=== PATIENT | male | born 1955 | race Caucasian/White ===

== ENCOUNTER → 2017-11-10 | Outpatient (CLI) | payer OTHER ==
[~2017-11-10] MED LIST: OXYC-272 PO
--- NOTE | 2017-11-10 12:35 | Diagnostic Imaging Report ---
INDICATION: Low back pain. EXAMINATION: Lumbar spine. FINDINGS: AP and lateral views of the lumbar spine show grade 1 spondylolisthesis at L4-L5. Alignment is otherwise normal. There are no compression fractures. There are large osteophytes forming anteriorly throughout the lumbar spine with bridging osteophytes at L5-S1. IMPRESSION: Pkeajefj-is-wulgju spondylosis deformans of the lumbar spine. There is grade 1 spondylolisthesis at L4-L5 with some associated facet arthropathy at that level. Dictated by: Dictated on workstation # [id number]
== END ==
LOC: RAD 12:02
PROVIDERS: ATTEND Nurse Practitioner Family
DX: M47.816 Spondylosis without myelopathy or radiculopathy, lumbar region (principal); M43.16 Spondylolisthesis, lumbar region; M46.86 Other specified inflammatory spondylopathies, lumbar region
CPT/HCPCS: 72100

== ENCOUNTER → 2019-04-26 | Outpatient (CLI) | payer MEDICARE ==
--- NOTE | 2019-04-26 16:45 | Diagnostic Imaging Report ---
INDICATION: Left femoral pain. COMPARISON: None. FINDINGS: Two radiographic views of the left hip were obtained. There are expected postsurgical changes of previous left total hip arthroplasty. There is appropriate anatomic alignment of the femoral component in relation to the acetabular component. Acetabular component appears well seated. The stem of the femoral component is located centrally in the medullary cavity. There is no periprosthetic fracture. No acute fracture or dislocation is identified. No unexpected radiopaque foreign bodies identified. IMPRESSION: Expected postsurgical changes of previous left total hip arthroplasty. No evidence of hardware fracture or failure. Dictated by: Dictated on workstation # [id number]
--- NOTE | 2019-04-26 16:46 | Diagnostic Imaging Report ---
INDICATION: Left femoral pain. COMPARISON: None. FINDINGS: Four radiographic views of the left femur were obtained and show no evidence of acute fracture or dislocation. Postsurgical changes of previous total left hip replacement are identified. Femoral and acetabular components appear well seated and well aligned in respect to one another. There is no evidence of periprosthetic fracture or loosening. No unexpected radiopaque foreign bodies are seen. Left knee joint is also intact. Note is made of mild osteoarthritic changes. IMPRESSION: 1. No evidence of acute fracture or dislocation of the left femur. 2. Expected postsurgical changes of previous left hip replacement. Dictated by: Dictated on workstation # [id number]
== END ==
LOC: RAD 15:39
PROVIDERS: ATTEND Family Medicine
DX: M79.652 Pain in left thigh (principal); Z96.642 Presence of left artificial hip joint
CPT/HCPCS: 73502; 73552

== ENCOUNTER → 2022-09-29 | Outpatient (CLI) | payer MEDICARE ==
--- NOTE | 2022-09-29 09:13 | Diagnostic Imaging Report ---
INDICATION: Pain post fall last week TECHNIQUE: 3 views of the left knee CORRELATION STUDY: None FINDINGS: Moderate joint space narrowing medially. Lateral compartments are better preserved. The articular surfaces are smooth. Mild marginal osteophyte formation medially. There is also advanced degenerative change patellofemoral compartment which includes prominent osteophytes at the inferior and to lesser degree superior pole of patella. Mild vascular calcification. No appreciable effusion. IMPRESSION: 1. Negative for acute bony abnormality of the knee. Moderately advanced multi compartment degenerative changes of the left knee. Dictated by: Dictated on workstation # [id number]
--- NOTE | 2022-09-29 09:15 | Diagnostic Imaging Report ---
INDICATION: Pain from fall last week. TECHNIQUE: Three views of the left ankle. CORRELATION STUDY: None. FINDINGS: Irregularity at the tip of the medial malleolus and fibula may reflect a more remote injury. There is lucency along the medial aspect of the talar dome suggesting a small osteochondral defect. The ankle mortise is otherwise maintained. No definitive intra-articular calcified loose body. Small plantar calcaneal spur-like formation. Mild vascular calcification and soft tissue edema. IMPRESSION: Negative for acute bony abnormality of the ankle. Findings do suggest a probable small osteochondral defect at the superior medial talar dome. Dictated by: Dictated on workstation # [id number]
== END ==
LOC: RAD 08:39
PROVIDERS: ATTEND Family Medicine
DX: M17.12 Unilateral primary osteoarthritis, left knee (principal); M25.572 Pain in left ankle and joints of left foot; W19.XXXA Unspecified fall, initial encounter
CPT/HCPCS: 73562; 73610